=== PATIENT | female | born 1955 | race Caucasian/White ===

== ENCOUNTER → 2018-05-29 | Outpatient (CLI) | payer BC ==
--- NOTE | 2018-05-30 16:54 | MAM ---
EXAM DESCRIPTION: 3D Screening BILATERAL : Digital Mammography. CLINICAL HISTORY: 62 years Female SCREENING . No complaints or personal history of breast cancer. Mother with breast cancer and remote family history of breast cancer. Childbirth. Hysterectomy 11 years. HRT 5 or more years ago.. Lifetime risk of developing breast cancer (Tyrer-Cuzick model)(%): 12.1. COMPARISON: None available. No prior reports available. TECHNIQUE: Bilateral CC and MLO projection full-field images, digital tomosynthesis mammographic technique. Bilateral digital 2-D full-field MLO images. CAD not available for tomosynthesis or 2-D images. FINDINGS: The breast parenchymal density pattern is: Scattered areas of fibroglandular density. No skin thickening or nipple retraction. Bilateral solitary microcalcifications. Focal asymmetry at the 11:30 clock position of the middle third of the left breast approximately 6 cm from the nipple not associated with microcalcifications. No new focal, stellate mass or density, focal asymmetry , and no suspicious microcalcifications right breast. IMPRESSION: BI-RADS CATEGORY: 0 - INCOMPLETE- Need additional imaging evaluation. FOLLOW-UP: Recall for additional imaging: Targeted left breast ultrasound of the region of interest. If indicated by ultrasound images, diagnostic orthogonal full-field images of the left breast. Written communication concerning the IMPRESSION and Follow-up, will be mailed to the patient and referring health care provider. Electronically signed by: Emmanuel Fang MD 05/30/2018 4:53 PM [employer]
== END ==
LOC: MAMMO 08:34
PROVIDERS: ATTEND Nurse Practitioner Family
DX: Z12.31 Encounter for screening mammogram for malignant neoplasm of breast (principal)

== ENCOUNTER → 2018-06-05 | Outpatient (CLI) | payer BC ==
--- NOTE | 2018-06-05 14:53 | US ---
EXAM DESCRIPTION: Breast,Left: Ultrasound CLINICAL HISTORY: 62 yearsFemaleABNORMAL MAMMO COMPARISON: Digital screening tomosynthesis bilateral breasts 05/29/2018. TECHNIQUE: Transcutaneous scanning of the left breast utilizing luciano-scale and Doppler modes. Scanning performed by the manager workers compensation ; observation by Dr. Fang. FINDINGS: Scanning of the upper aspect of the middle third of the left breast and anterior tissue, posterior to the nipple. Emphasis on the 11:00-12:00 sector of the breast in the middle third. Mixture of fibroglandular and fatty echotexture is. No dominant solid mass or distinct cyst. No parenchymal edema or large calcifications. No overlying skin changes. No abnormal vascularity. IMPRESSION: Benign exam. BIRAD CATEGORY: 2 BENIGN FINDINGS. RECOMMENDATIONS: FOLLOW UP: Routine digital bilateral mammographic screening, one year interval from May 2018. The FINDINGS and the FOLLOW-UP plan were reviewed in person with the patient after the examination. Written communication explaining the IMPRESSION and FOLLOW-UP will be mailed to the patient and referring care provider. According to the [employer], yearly mammograms are recommended starting at age 40 and continuing as long as a woman is in good health. Any breast change noted on a breast self-exam should be reported promptly to the patient's healthcare provider. Breast MRI is recommended for women with an approximately 20-25% or greater lifetime risk of breast cancer, including women with a strong family history of breast or ovarian cancer and women who have been treated for Hodgkin's disease. A negative mammographic report should not delay tissue diagnosis in patients with significant clinical history or physical findings. Extremely dense breast tissue limits the sensitivity of digital mammography. Electronically signed by: Emmanuel Fang MD 06/05/2018 2:52 PM [facility]
== END ==
LOC: US 10:00
PROVIDERS: ATTEND Nurse Practitioner Family
DX: R92.8 Other abnormal and inconclusive findings on diagnostic imaging of breast (principal)